=== PATIENT | male | born 1945 | race Caucasian/White ===

== ENCOUNTER 2018-03-10 15:32 | Emergency (ER) | payer MEDICARE ==
[~2018-03-10] VITALS: Ht 193 cm; Wt 93.0 kg
[~2018-03-10 15:32] MED LIST: ACEB200 PO; ATOR80 PO; Aspirin EC81 MG PO; CITA20 PO; CYCL10 PO; LOSHYD100 PO; LOVA20 PO; NAPR500 PO; OXYACE5T PO; [UNRECOGNIZED DRUG - REMARK]
[2018-03-10] MEDS ORDERED: TRAZ50 PO (15:36)
[2018-03-10] MEDS ORDERED: LOSARTAN-HCTZ1 EAC1 PO (15:36)
== END 2018-03-10 17:29 | disposition home or self-care (01) ==
LOC: ER 15:32
DX: S01.81XA Laceration without foreign body of other part of head, initial encounter (principal); Z79.899 Other long term (current) drug therapy; Z87.891 Personal history of nicotine dependence; W22.8XXA Striking against or struck by other objects, initial encounter
CPT/HCPCS: 12001; 70450; 72125; 99284

== ENCOUNTER 2018-04-30 05:50 | Day surgery (SDC) | payer MEDICARE ==
[~2018-04-30] VITALS: Ht 190.5 cm; Wt 93.4 kg
[~2018-04-30 05:50] MED LIST changes: +ASPI81CH PO; +Coq-10100 MG PO; +LOSARTAN-HCTZ1 EAC1 PO; +Multivitamin1 EAC1 PO; +TRAZ50 PO; +Vitamin D2000 UNIT PO
[2018-05-01 04:17] LABS: BASOPHILS ABSOLUTE AUTO 0.01 K/mm3 (0.00-0.23); BASOPHILS PERCENT AUTO 0 % (0-2); EOSINOPHILS ABSOLUTE AUTO 0.01 K/mm3 (0.00-0.68); EOSINOPHILS PERCENT AUTO 0 % (0-6); Hemoglobin 11.4 g/dL (13.5-17.5); IMMATURE GRAN ABSOLUTE AUTO 0.08 K/mm3 (0.00-0.10); IMMATURE GRAN PERCENT AUTO 1 % (0-1); LYMPHOCYTES ABSOLUTE AUTO 1.47 K/mm3 (0.84-5.20); LYMPHOCYTES PERCENT AUTO 15 % (21-46); MONOCYTES ABSOLUTE AUTO 0.72 K/mm3 (0.16-1.47); MONOCYTES PERCENT AUTO 7 % (4-13); Mean Corpuscular HGB Conc 33.5 g/dL (31.5-36.5); Mean Corpuscular Volume 96 fL (80-100); Mean Platelet Volume 10.9 fL (9.1-12.4); NEUTROPHILS ABSOLUTE AUTO 7.45 K/mm3 (1.96-9.15); NEUTROPHILS PERCENT AUTO 77 % (41-73); Platelet Count 237 K/mm3 (150-400); RDW Coefficient Variation 14.3 % (11.7-14.2); RDW Standard Deviation 50.6 fL (35.1-46.3); Red Blood Cell Count 3.56 M/mm3 (4.30-5.90); White Blood Cell Count 9.74 K/mm3 (4.00-11.30)
[2018-05-01 04:44] LABS: Anion Gap 8 mmol/L (6-16); Blood Urea Nitrogen 25 mg/dL (8-24); Bun/Creatinine Ratio 24.5 (12.0-20.0); CO2, Blood 28 mmol/L (21-32); Calcium, Blood 8.1 mg/dL (8.5-10.1); Chloride, Blood 102 mmol/L (98-108); Creatinine, Blood 1.02 mg/dL (0.60-1.20); Glomerular Filtration Rate >60 (60-); Glucose, Blood 117 mg/dL (70-99); Potassium, Blood 4.1 mmol/L (3.5-5.5); Sodium, Blood 138 mmol/L (136-145)
[2018-05-01] MEDS ORDERED: XARELTO10 MG PO (12:09)
[2018-05-01] MEDS ORDERED: Percocet 5-3251 EACH PO (12:10)
== END 2018-05-01 14:30 | disposition home or self-care (01) ==
LOC: SURS 05:50 → ORSCMMR 05:50 → ORD 07:30 → ORSCMMR 07:30 → SURS 10:22 → ORSCMMR 05-01 14:30
PROVIDERS: Orthopaedic Surgery
PROC: 0SRC0JA Replacement of Right Knee Joint with Synthetic Substitute, Uncemented, Open Approach (ICD-10-PCS; principal; 2018-04-30 07:30)
DX: M17.11 Unilateral primary osteoarthritis, right knee (principal); Z01.818 Encounter for other preprocedural examination; I10 Essential (primary) hypertension; K21.9 Gastro-esophageal reflux disease without esophagitis; Z79.899 Other long term (current) drug therapy
CPT/HCPCS: 36415; 73560-RT; 80048; 85025; 86850; 86900; 86901; 88300; 97110; 97116; 97162; 97530; C1776; G8978; G8979; G8980; J0171; J0690; J0735; J1100; J1885; J2250; J2370; J2405; J2795; J3010; J7120; Q0163

== ENCOUNTER → 2018-05-24 | Outpatient (CLI) | payer MEDICARE ==
[~2018-05-24] MED LIST changes: +Percocet 5-3251 EACH PO; +XARELTO10 MG PO
== END ==
LOC: LAB 13:39 → LAB SHORT 13:39
DX: L08.1 Erythrasma (principal); B35.3 Tinea pedis
CPT/HCPCS: 87070; 87205

== ENCOUNTER 2019-04-18 06:14 | Day surgery (SDC) | payer MEDICARE ==
[~2019-04-18] VITALS: Ht 190.5 cm; Wt 98.0 kg
[2019-04-18] MEDS ORDERED: VITAMIN D32000 UNI1 PO (06:57)
[2019-04-18] MEDS ORDERED: LOSARTAN-HCTZ1 EAC1 PO (06:57)
[2019-04-18] MEDS ORDERED: Multiple Vitam1 EAC1 PO (06:58)
[2019-04-18] MEDS ORDERED: Lipitor80 MG PO (06:58)
[2019-04-18] MEDS ORDERED: Aspirin EC81 MG PO (06:58)
[2019-04-18] MEDS ORDERED: Bystolic20 MG PO (06:58)
[2019-04-18] MEDS ORDERED: MIRT15ST (06:59)
[2019-04-18] MEDS ORDERED: Celexa40 MG PO (06:59)
[2019-04-18] MEDS ORDERED: Coq-1030 MG (06:59)
== END 2019-04-18 08:30 | disposition home or self-care (01) ==
LOC: ORSCSDS 06:14
PROVIDERS: Orthopaedic Surgery
PROC: 01N50ZZ Release Median Nerve, Open Approach (ICD-10-PCS; principal; 2019-04-18 07:30)
DX: G56.01 Carpal tunnel syndrome, right upper limb (principal); I10 Essential (primary) hypertension; F32.9 Major depressive disorder, single episode, unspecified; Z79.899 Other long term (current) drug therapy
CPT/HCPCS: J0690; J2250; J2704; J3010; J7120

== ENCOUNTER 2019-06-06 06:18 | Day surgery (SDC) | payer MEDICARE ==
[~2019-06-06] VITALS: Ht 190.5 cm; Wt 98.6 kg
[~2019-06-06 06:18] MED LIST changes: +Bystolic20 MG PO; +Celexa40 MG PO; +Coq-1030 MG; +Lipitor80 MG PO; +MIRT15ST; +Multiple Vitam1 EAC1 PO; +VITAMIN D32000 UNI1 PO
[2019-06-06] MEDS ORDERED: Coq-1030 MG PO (07:01)
== END 2019-06-06 08:34 | disposition home or self-care (01) ==
LOC: ORSCSDS 06:18
PROVIDERS: Orthopaedic Surgery
PROC: 01N50ZZ Release Median Nerve, Open Approach (ICD-10-PCS; principal; 2019-06-06 07:30)
DX: G56.02 Carpal tunnel syndrome, left upper limb (principal); I10 Essential (primary) hypertension; E78.5 Hyperlipidemia, unspecified; J45.909 Unspecified asthma, uncomplicated; F32.9 Major depressive disorder, single episode, unspecified; Z79.82 Long term (current) use of aspirin; Z79.899 Other long term (current) drug therapy; Z87.891 Personal history of nicotine dependence
CPT/HCPCS: J0690; J2250; J2704; J3010; J7120

== ENCOUNTER 2019-08-19 06:42 | Day surgery (SDC) | payer MEDICARE ==
[~2019-08-19] VITALS: Ht 190.5 cm; Wt 100.0 kg
[~2019-08-19 06:42] MED LIST changes: +COQ1050 MG PO; +Coq-1030 MG PO; +MIRT15 PO; +THERA1 EACH PO; +ZESTORETIC 20-121 EA PO
[2019-08-19] MEDS ORDERED: ATOR80 PO (07:04)
--- NOTE | 2019-08-19 08:23 | NUR ---
Ambulatory in Day Surgery. Surgical site prepped with 2% Chlorhexidine cloth wipe. History, Chart, Medications and Allergies reviewed before start of procedure.Lungs clear T/O to Auscultation. Patient confirms NPO status and agrees with scheduled surgery. Pre-Op teaching done. Pt verbalizes understanding. Patient reports completing Chlorhexadine shower X2 prior to admission to hospital.
--- NOTE | 2019-08-19 11:30 | NUR ---
FROM PACU TO SURGICAL FLOOR PT ARRIVED TO UNIT AT APPROX 1120 TODAY VIA HOSPITAL BED. A/OX4 W/VSS. DENIES ANY DISCOMFORT AT THIS TIME. LEFT KNEE DRESSING IS C/D/I WITH ICE PACK IN PLACE. DENIES FEELING ANY SENSATION BELOW HIP, UNABLE TO MOVE BLE'S AT THIS TIME. BLE'S ARE WARM W/BRISK CAP REFILL AND STRONG PULSES. PT DENIES N/V. CURRENTLY EATING REGULAR LUNCH TRAY WHILE WATCHING TV. ABLE TO USE CALL LIGHT AND HAS IT WITHIN REACH.
--- NOTE | 2019-08-19 14:55 | NUR ---
PT WORKING WITH THERAPY AT THIS TIME.
--- NOTE | 2019-08-19 18:13 | NUR ---
SHIFT SUMMARY POD 0 S/P L TKA. A/O X4 WITH VSS. AQUACEL TO LEFT KNEE IN PLACE THAT IS C/D/I W/NO DRAINAGE NOTED. HAS POLAR PACK, SHU'S, AND SCD'S IN PLACE. PAIN WELL CONTROLLED WITH PO MEDS. TOLERATING REGULAR DIET, DENIES N/V. UP IN CHAIR FOR DINNER. WORKED WITH THERAPY THIS AFTERNOON. 1 POST-OP VOID. CURRENTLY WATCHING TV IN BED WITH CALL LIGHT WITHIN REACH. WILL CONT. TO MONITOR AND GIVE REPORT TO ON COMING RN.
--- NOTE | 2019-08-20 04:03 | NUR ---
SHIFT SUMMARY POD1 LTKA. PT AAOX4, VSS. AQUACEL IN PLACE CDI. PATIENT HAS BEEN UP AND AMBULATING WITH FWW/GB. PT HAS VOIDED DURING SHIFT. MEDICATED PER EMAR FOR PAIN. PATIENT HAS BEEN RESTING IN BED DURING SHIFT. DENIES NAUSEA.
[2019-08-20 04:26] LABS: BASOPHILS ABSOLUTE AUTO 0.02 K/mm3 (0.00-0.23); BASOPHILS PERCENT AUTO 0 % (0-2); EOSINOPHILS ABSOLUTE AUTO 0.01 K/mm3 (0.00-0.68); EOSINOPHILS PERCENT AUTO 0 % (0-6); Hematocrit 34.9 % (37.0-53.0); Hemoglobin 11.5 g/dL (13.5-17.5); IMMATURE GRAN ABSOLUTE AUTO 0.06 K/mm3 (0.00-0.10); IMMATURE GRAN PERCENT AUTO 1 % (0-1); LYMPHOCYTES ABSOLUTE AUTO 1.63 K/mm3 (0.84-5.20); LYMPHOCYTES PERCENT AUTO 14 % (21-46); MONOCYTES ABSOLUTE AUTO 0.88 K/mm3 (0.16-1.47); MONOCYTES PERCENT AUTO 8 % (4-13); Mean Corpuscular HGB 31.7 pg (26.0-34.0); Mean Corpuscular Volume 96 fL (80-100); Mean Platelet Volume 11.1 fL (9.1-12.4); NEUTROPHILS ABSOLUTE AUTO 8.97 K/mm3 (1.96-9.15); NEUTROPHILS PERCENT AUTO 78 % (41-73); Platelet Count 251 K/mm3 (150-400); RDW Coefficient Variation 14.1 % (11.7-14.2); RDW Standard Deviation 50.3 fL (35.1-46.3); Red Blood Cell Count 3.63 M/mm3 (4.30-5.90); White Blood Cell Count 11.57 K/mm3 (4.00-11.30)
[2019-08-20 04:43] LABS: Anion Gap 6 mmol/L (6-16); Blood Urea Nitrogen 27 mg/dL (8-24); CO2, Blood 25 mmol/L (21-32); Calcium, Blood 8.2 mg/dL (8.5-10.1); Chloride, Blood 107 mmol/L (98-108); Creatinine, Blood 0.93 mg/dL (0.60-1.20); Glomerular Filtration Rate >60 (60-); Glucose, Blood 125 mg/dL (70-99); Potassium, Blood 4.4 mmol/L (3.5-5.5); Sodium, Blood 138 mmol/L (136-145)
--- NOTE | 2019-08-20 07:47 | NUR ---
DR NEFF AND STEPHANIE BEEN HERE TO SEE PT.
[2019-08-20] MEDS ORDERED: Percocet 5-3251 EACH PO (09:33)
[2019-08-20] MEDS ORDERED: ASPI81CH PO (09:34)
--- NOTE | 2019-08-20 11:11 | NUR ---
DISCHARGE: PT EATING AND DRINKING, VOIDING, PASSING GAS. PT REPORTS PAIN TOLERABLE ON PO PAIN MEDICATION. PT REPORTS HAVING WALKER AT HOME. PT/FAMILY REPORTS UNDERSTANDING OF DISCHARGE INSTRUCTIONS INCLUDING ICE MACHINE AND DRESSING CHANGES. PT SENT WITH PAPERWORK AND DRESSING SUPPLIES. PT CLEARED BY THERAPY TO GO HOME.
--- NOTE | 2019-08-21 09:33 | NUR ---
08/21/19 0933 Sweta Recio VERIFICATIONS: EDIT CHART.
== END 2019-08-20 11:11 | disposition home or self-care (01) ==
LOC: ORSCMMR 06:42 → ORD 07:30 → ORSCMMR 08:15 → SURS 11:22 → ORD 16:15 → ORSCMMR 08-20 11:11
PROVIDERS: Orthopaedic Surgery
PROC: 0SRD0JA Replacement of Left Knee Joint with Synthetic Substitute, Uncemented, Open Approach (ICD-10-PCS; principal; 2019-08-19 08:15)
DX: M17.12 Unilateral primary osteoarthritis, left knee (principal); Z01.818 Encounter for other preprocedural examination; I10 Essential (primary) hypertension; Z79.899 Other long term (current) drug therapy; Z79.82 Long term (current) use of aspirin
CPT/HCPCS: 36415; 73560-LT; 80048; 85025; 86850; 86900; 86901; 88300; 97110; 97116; 97162; 97530; C1776; J0171; J0690; J0735; J1100; J1885; J2250; J2405; J2704; J2795; J3010; J7120; Q0163

== ENCOUNTER 2020-02-02 09:40 | Emergency (ER) | payer MEDICARE ==
[~2020-02-02] VITALS: Ht 190.5 cm; Wt 95.2 kg
== END 2020-02-02 13:23 | disposition home or self-care (01) ==
LOC: ER 09:40
DX: M65.862 Other synovitis and tenosynovitis, left lower leg (principal); Z79.899 Other long term (current) drug therapy; Z79.82 Long term (current) use of aspirin; Z96.651 Presence of right artificial knee joint
CPT/HCPCS: 73562-LT; 99283-25

== ENCOUNTER 2020-02-10 03:50 | Emergency (ER) | payer MEDICARE ==
[~2020-02-10] VITALS: Ht 190.5 cm; Wt 97.5 kg
[2020-02-10] MEDS ORDERED: Percocet 5-3251 EACH PO (05:14)
== END 2020-02-10 05:30 | disposition home or self-care (01) ==
LOC: ER 03:50
DX: M25.562 Pain in left knee (principal); Z79.899 Other long term (current) drug therapy; Z79.82 Long term (current) use of aspirin; Z87.891 Personal history of nicotine dependence
CPT/HCPCS: 73560-LT; 99283-25; A9270; A9270-GY

== ENCOUNTER → 2020-02-11 | Outpatient (CLI) | payer MEDICARE ==
[2020-02-11 16:59] LABS: BODY FLUID RBC 0.315 M/mm3 (0-0); RBC Count, Synovial Fluid 315000 /mm3 (0-0)
[2020-02-11 17:24] LABS: WBC Count, Synovial Fluid 87850 /mm3 (0-180)
[2020-02-11 18:01] LABS: Eos, Synovial Fluid 1 % (0-2); Lymphs, Synovial Fluid 7 % (0-15); Monocytes/Macrophages, Synovia 2 % (0-65); Neutrophils, Synovial Fluid 90 % (0-24)
[2020-02-11 18:05] LABS: Appearance, Synovial Fluid Bloody (Clear); Color, Synovial Fluid Red (None-P Yel)
== END | disposition home or self-care (01) ==
LOC: LAB SHORT 16:05 → LAB 16:05
PROVIDERS: Orthopaedic Surgery
DX: Z47.1 Aftercare following joint replacement surgery (principal); Z96.652 Presence of left artificial knee joint
CPT/HCPCS: 89051

== ENCOUNTER → 2020-03-04 | Outpatient (CLI) | payer MEDICARE ==
[~2020-03-04] MED LIST changes: +PERCOCET 10-321 EAC2 PO
[2020-03-04 15:14] LABS: BASOPHILS ABSOLUTE AUTO 0.08 K/mm3 (0.00-0.23); BASOPHILS PERCENT AUTO 2 % (0-2); EOSINOPHILS ABSOLUTE AUTO 0.15 K/mm3 (0.00-0.68); EOSINOPHILS PERCENT AUTO 3 % (0-6); Hematocrit 30.2 % (37.0-53.0); Hemoglobin 9.3 g/dL (13.5-17.5); IMMATURE GRAN ABSOLUTE AUTO 0.08 K/mm3 (0.00-0.10); IMMATURE GRAN PERCENT AUTO 2 % (0-1); LYMPHOCYTES ABSOLUTE AUTO 1.55 K/mm3 (0.84-5.20); LYMPHOCYTES PERCENT AUTO 29 % (21-46); MONOCYTES ABSOLUTE AUTO 0.43 K/mm3 (0.16-1.47); MONOCYTES PERCENT AUTO 8 % (4-13); Mean Corpuscular HGB 28.8 pg (26.0-34.0); Mean Corpuscular HGB Conc 30.8 g/dL (31.5-36.5); Mean Corpuscular Volume 94 fL (80-100); Mean Platelet Volume 10.1 fL (9.1-12.4); NEUTROPHILS ABSOLUTE AUTO 3.13 K/mm3 (1.96-9.15); NEUTROPHILS PERCENT AUTO 58 % (41-73); Platelet Count 462 K/mm3 (150-400); RDW Coefficient Variation 14.8 % (11.7-14.2); RDW Standard Deviation 50.5 fL (35.1-46.3); Red Blood Cell Count 3.23 M/mm3 (4.30-5.90); White Blood Cell Count 5.42 K/mm3 (4.00-11.30)
[2020-03-04 15:29] LABS: Alanine Aminotransfer (ALT/SGP 21 U/L (12-78); Albumin, Blood 2.5 g/dL (3.4-5.0); Albumin/Globulin Ratio 0.5 (0.8-1.8); Alk Phos 90 U/L (50-136); Anion Gap 3 mmol/L (6-16); Aspartate Aminotrans (AST/SGOT 22 U/L (12-37); Bilirubin, Total 0.4 mg/dL (0.1-1.0); Blood Urea Nitrogen 10 mg/dL (8-24); Bun/Creatinine Ratio 13.3 (12.0-20.0); CO2, Blood 30 mmol/L (21-32); Calcium, Blood 9.2 mg/dL (8.5-10.1); Chloride, Blood 105 mmol/L (98-108); Creatinine, Blood 0.75 mg/dL (0.60-1.20); Globulin, Blood 4.6 g/dL (2.2-4.0); Glomerular Filtration Rate >60 (60-); Glucose, Blood 94 mg/dL (70-99); Potassium, Blood 4.1 mmol/L (3.5-5.5); Sodium, Blood 138 mmol/L (136-145); Total Protein, Blood 7.1 g/dL (6.4-8.2)
== END | disposition home or self-care (01) ==
LOC: LAB 14:22 → LAB SHORT 14:22
DX: T84.54XA Infection and inflammatory reaction due to internal left knee prosthesis, initial encounter (principal); B96.5 Pseudomonas (aeruginosa) (mallei) (pseudomallei) as the cause of diseases classified elsewhere; Z79.2 Long term (current) use of antibiotics
CPT/HCPCS: 80053; 85025

== ENCOUNTER → 2020-03-08 | Outpatient (CLI) | payer MEDICARE ==
[2020-03-08 12:49] LABS: Alanine Aminotransfer (ALT/SGP 15 U/L (12-78); Albumin, Blood 2.5 g/dL (3.4-5.0); Albumin/Globulin Ratio 0.6 (0.8-1.8); Alk Phos 95 U/L (50-136); Anion Gap 6 mmol/L (6-16); Aspartate Aminotrans (AST/SGOT 13 U/L (12-37); Bilirubin, Total 0.4 mg/dL (0.1-1.0); Blood Urea Nitrogen 13 mg/dL (8-24); Bun/Creatinine Ratio 17.4 (12.0-20.0); CO2, Blood 28 mmol/L (21-32); Calcium, Blood 8.7 mg/dL (8.5-10.1); Chloride, Blood 107 mmol/L (98-108); Creatinine, Blood 0.75 mg/dL (0.60-1.20); Globulin, Blood 4.4 g/dL (2.2-4.0); Glomerular Filtration Rate >60 (60-); Glucose, Blood 104 mg/dL (70-99); Potassium, Blood 3.8 mmol/L (3.5-5.5); Sodium, Blood 141 mmol/L (136-145); Total Protein, Blood 6.9 g/dL (6.4-8.2)
== END | disposition home or self-care (01) ==
LOC: LAB 10:10 → LAB SHORT 10:10
PROVIDERS: Orthopaedic Surgery
DX: T84.54XD Infection and inflammatory reaction due to internal left knee prosthesis, subsequent encounter (principal); B96.5 Pseudomonas (aeruginosa) (mallei) (pseudomallei) as the cause of diseases classified elsewhere; Z79.2 Long term (current) use of antibiotics
CPT/HCPCS: 80053

== ENCOUNTER → 2020-03-09 | Outpatient (CLI) | payer MEDICARE ==
[2020-03-09 15:09] LABS: Hematocrit 32.7 % (37.0-53.0); Hemoglobin 10.2 g/dL (13.5-17.5); Mean Corpuscular HGB 28.9 pg (26.0-34.0); Mean Corpuscular HGB Conc 31.2 g/dL (31.5-36.5); Mean Corpuscular Volume 93 fL (80-100); Mean Platelet Volume 10.4 fL (9.1-12.4); Platelet Count 448 K/mm3 (150-400); RDW Coefficient Variation 15.3 % (11.7-14.2); RDW Standard Deviation 51.5 fL (35.1-46.3); Red Blood Cell Count 3.53 M/mm3 (4.30-5.90); White Blood Cell Count 5.64 K/mm3 (4.00-11.30)
== END | disposition home or self-care (01) ==
LOC: LAB SHORT 14:08 → LAB 14:08
PROVIDERS: Orthopaedic Surgery
DX: T84.54XD Infection and inflammatory reaction due to internal left knee prosthesis, subsequent encounter (principal); B96.5 Pseudomonas (aeruginosa) (mallei) (pseudomallei) as the cause of diseases classified elsewhere; Z79.2 Long term (current) use of antibiotics
CPT/HCPCS: 85027

== ENCOUNTER → 2020-03-11 | Outpatient (CLI) | payer MEDICARE ==
[2020-03-11 14:46] LABS: BASOPHILS ABSOLUTE AUTO 0.06 K/mm3 (0.00-0.23); BASOPHILS PERCENT AUTO 1 % (0-2); EOSINOPHILS PERCENT AUTO 2 % (0-6); Hematocrit 32.9 % (37.0-53.0); Hemoglobin 10.1 g/dL (13.5-17.5); IMMATURE GRAN ABSOLUTE AUTO 0.05 K/mm3 (0.00-0.10); IMMATURE GRAN PERCENT AUTO 1 % (0-1); LYMPHOCYTES ABSOLUTE AUTO 1.17 K/mm3 (0.84-5.20); LYMPHOCYTES PERCENT AUTO 24 % (21-46); MONOCYTES ABSOLUTE AUTO 0.39 K/mm3 (0.16-1.47); MONOCYTES PERCENT AUTO 8 % (4-13); Mean Corpuscular HGB 28.6 pg (26.0-34.0); Mean Corpuscular HGB Conc 30.7 g/dL (31.5-36.5); Mean Corpuscular Volume 93 fL (80-100); Mean Platelet Volume 10.3 fL (9.1-12.4); NEUTROPHILS ABSOLUTE AUTO 3.21 K/mm3 (1.96-9.15); NEUTROPHILS PERCENT AUTO 65 % (41-73); Platelet Count 451 K/mm3 (150-400); RDW Coefficient Variation 15.4 % (11.7-14.2); RDW Standard Deviation 52.5 fL (35.1-46.3); Red Blood Cell Count 3.53 M/mm3 (4.30-5.90); White Blood Cell Count 4.98 K/mm3 (4.00-11.30)
== END | disposition home or self-care (01) ==
LOC: LAB SHORT 13:28 → LAB 13:28
PROVIDERS: Orthopaedic Surgery
DX: L76.32 Postprocedural hematoma of skin and subcutaneous tissue following other procedure (principal)
CPT/HCPCS: 85025; 85651; 86140

== ENCOUNTER → 2020-04-12 | Outpatient (CLI) | payer MEDICARE ==
[2020-04-12 11:00] LABS: BASOPHILS ABSOLUTE AUTO 0.06 K/mm3 (0.00-0.23); BASOPHILS PERCENT AUTO 1 % (0-2); EOSINOPHILS ABSOLUTE AUTO 0.11 K/mm3 (0.00-0.68); EOSINOPHILS PERCENT AUTO 2 % (0-6); Hematocrit 36.4 % (37.0-53.0); Hemoglobin 11.6 g/dL (13.5-17.5); IMMATURE GRAN ABSOLUTE AUTO 0.03 K/mm3 (0.00-0.10); IMMATURE GRAN PERCENT AUTO 1 % (0-1); LYMPHOCYTES ABSOLUTE AUTO 2.09 K/mm3 (0.84-5.20); LYMPHOCYTES PERCENT AUTO 33 % (21-46); MONOCYTES ABSOLUTE AUTO 0.61 K/mm3 (0.16-1.47); MONOCYTES PERCENT AUTO 10 % (4-13); Mean Corpuscular HGB 29.1 pg (26.0-34.0); Mean Corpuscular HGB Conc 31.9 g/dL (31.5-36.5); Mean Corpuscular Volume 92 fL (80-100); Mean Platelet Volume 10.6 fL (9.1-12.4); NEUTROPHILS ABSOLUTE AUTO 3.43 K/mm3 (1.96-9.15); NEUTROPHILS PERCENT AUTO 54 % (41-73); Platelet Count 361 K/mm3 (150-400); RDW Coefficient Variation 15.9 % (11.7-14.2); RDW Standard Deviation 53.5 fL (35.1-46.3); Red Blood Cell Count 3.98 M/mm3 (4.30-5.90); White Blood Cell Count 6.33 K/mm3 (4.00-11.30)
[2020-04-12 11:29] LABS: Alanine Aminotransfer (ALT/SGP 14 U/L (12-78); Albumin, Blood 3.2 g/dL (3.4-5.0); Albumin/Globulin Ratio 0.8 (0.8-1.8); Alk Phos 100 U/L (50-136); Anion Gap 4 mmol/L (6-16); Aspartate Aminotrans (AST/SGOT 17 U/L (12-37); Bilirubin, Total 0.5 mg/dL (0.1-1.0); Blood Urea Nitrogen 15 mg/dL (8-24); Bun/Creatinine Ratio 20.7 (12.0-20.0); CO2, Blood 29 mmol/L (21-32); Calcium, Blood 9.4 mg/dL (8.5-10.1); Chloride, Blood 104 mmol/L (98-108); Creatinine, Blood 0.73 mg/dL (0.60-1.20); Glomerular Filtration Rate >60 (60-); Glucose, Blood 106 mg/dL (70-99); Sodium, Blood 137 mmol/L (136-145); Total Protein, Blood 7.2 g/dL (6.4-8.2)
== END | disposition home or self-care (01) ==
LOC: LAB SHORT 10:50 → LAB 10:50
PROVIDERS: Orthopaedic Surgery
DX: Z48.00 Encounter for change or removal of nonsurgical wound dressing (principal); T84.54XA Infection and inflammatory reaction due to internal left knee prosthesis, initial encounter; S82.002D Unspecified fracture of left patella, subsequent encounter for closed fracture with routine healing; M97.12XD Periprosthetic fracture around internal prosthetic left knee joint, subsequent encounter; B96.5 Pseudomonas (aeruginosa) (mallei) (pseudomallei) as the cause of diseases classified elsewhere; Z79.2 Long term (current) use of antibiotics
CPT/HCPCS: 80053; 85025; 85651; 86140

== ENCOUNTER → 2020-06-12 | Outpatient (CLI) | payer MEDICARE ==
[2020-06-14 13:43] LABS: Stool Occult Bld Immuno 1 Negative (NEGATIVE); Stool Occult Bld Immuno 2 Negative (NEGATIVE); Stool Occult Bld Immuno 3 Negative (NEGATIVE)
== END | disposition home or self-care (01) ==
LOC: LAB 12:00 → LAB SHORT 12:00
PROVIDERS: Physician Assistant
DX: D64.9 Anemia, unspecified (principal)
CPT/HCPCS: 82274

== ENCOUNTER → 2022-02-27 | Outpatient (CLI) | payer MEDICARE | END | disposition home or self-care (01) | LOC: LAB SHORT 12:41 → LAB 12:41 | DX: T14.8XXA Other injury of unspecified body region, initial encounter (principal) | CPT/HCPCS: 87070; 87075; 87205 ==

== ENCOUNTER 2024-10-30 10:24 | Day surgery (SDC) | payer MEDICARE ==
[~2024-10-30] VITALS: Ht 190.5 cm; Wt 99.9 kg
[~2024-10-30 10:24] MED LIST changes: +ATOR20; +Balanced Salt Epinephrine Irrigation Solution 500 mL IR SCH; +Diazepam 2 MG Tab PO PRN; +Lidocaine HCl/Pf 1% 5 ML VIAL XX SCH; +Moxifloxacin HCL 0.5 MG/0.1 ML 0.4MLSYR LEFTEYE SCH; +Ondansetron 4 MG SoluTab MM PRN; +PHENYLEPHRINE\\TROPICAMIDE\\TETRACAINE OPHTHALMIC DILATING SOLN LEFTEYE PRN; +Povidone-Iodine 450 DROP/30 ML Solution LEFTEYE SCH; +Povidone-Iodine 450 DROP/30 ML Solution ONE; +Tetracaine HCl/Pf 0.5% Opth Soln 4 ml ONE; +Triamcinolone Inj Susp 40 MG / ML 1ML Vial INJ SCH; +Triamcinolone Inj Susp 40 MG / ML 1ML Vial ONE; +ZOLP5 PO; +diazePAM 2 MG,diazePAM 5 MG PO SCH
[2024-10-30] MEDS ORDERED: Midazolam HCl 1MG / ML 2ML Vial ONE (11:43)
[2024-10-30] MEDS ORDERED: propofoL 20 ML IV ONE (11:56)
[2024-10-30 12:15] VITALS: BP 108/61
== END 2024-10-30 12:33 | disposition home or self-care (01) ==
LOC: ORSCSDS 10:24
PROVIDERS: Ophthalmology
PROC: 08RK3JZ Replacement of Left Lens with Synthetic Substitute, Percutaneous Approach (ICD-10-PCS; 2024-10-30)
PROC: 08933ZZ Drainage of Left Anterior Chamber, Percutaneous Approach (ICD-10-PCS; principal; 2024-10-30 12:00)
DX: H25.812 Combined forms of age-related cataract, left eye (principal); Z96.1 Presence of intraocular lens; Z87.891 Personal history of nicotine dependence; H40.1131 Primary open-angle glaucoma, bilateral, mild stage; F32.A Depression, unspecified; E78.5 Hyperlipidemia, unspecified; I10 Essential (primary) hypertension; J44.9 Chronic obstructive pulmonary disease, unspecified; I25.10 Atherosclerotic heart disease of native coronary artery without angina pectoris; Z79.82 Long term (current) use of aspirin; Z79.899 Other long term (current) drug therapy
CPT/HCPCS: J2250; J2704; J3301; V2632